=== PATIENT | female | born 2000 | race Caucasian/White ===

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

== ENCOUNTER 2019-08-08 15:19 | Emergency (ER) | payer OTHER ==
[~2019-08-08] VITALS: Ht 162.6 cm; Wt 88.5 kg
== END 2019-08-08 21:39 | disposition home or self-care (01) ==
LOC: ER 15:19
DX: N83.292 Other ovarian cyst, left side (principal)

== ENCOUNTER 2022-12-15 23:03 | Emergency (ER) | payer OTHER ==
[~2022-12-15] VITALS: Ht 160 cm; Wt 77.1 kg
== END 2022-12-16 00:25 | disposition home or self-care (01) ==
LOC: ER 23:03
DX: A60.09 Herpesviral infection of other urogenital tract (principal); Z91.013 Allergy to seafood